=== PATIENT | male | born 1995 | race Caucasian/White ===

== ENCOUNTER 2023-09-27 14:26 | Emergency (ER) | payer OTHER, MEDICAID ==
[~2023-09-27] VITALS: Ht 167.6 cm; Wt 53.5 kg
[2023-09-27 15:21] VITALS: BP 111/72; TEMP 97.9; O2SAT 100
[2023-09-27] MEDS ORDERED: ALBU18HF2 INH (15:41)
== END 2023-09-27 15:48 | disposition home or self-care (01) ==
LOC: ER 14:27
DX: U07.1 COVID-19 (principal); R06.02 Shortness of breath; Z91.014 Allergy to mammalian meats; Z91.018 Allergy to other foods
CPT/HCPCS: 71045-TC

== ENCOUNTER 2023-11-28 16:56 | Emergency (ER) | payer OTHER, MEDICAID ==
[~2023-11-28] VITALS: Ht 167.6 cm; Wt 54.4 kg
[~2023-11-28 16:56] MED LIST: ALBU18HF2 INH
[2023-11-28] MEDS ORDERED: LORAZEPAM 1 MG TABLET ONE (17:25)
[2023-11-28] MEDS: LORAZEPAM 1 MG TABLET PO ONE (17:27)
[2023-11-28 18:46] VITALS: BP 113/65; TEMP 98; O2SAT 99
== END 2023-11-28 18:46 | disposition home or self-care (01) ==
LOC: ER 17:01
DX: R06.02 Shortness of breath (principal); R20.2 Paresthesia of skin; R07.9 Chest pain, unspecified; G40.909 Epilepsy, unspecified, not intractable, without status epilepticus; F41.9 Anxiety disorder, unspecified; K58.9 Irritable bowel syndrome, unspecified; Z87.19 Personal history of other diseases of the digestive system; Z91.010 Allergy to peanuts; Z91.014 Allergy to mammalian meats; Z91.018 Allergy to other foods
CPT/HCPCS: 71045-TC